=== PATIENT | female | born 1980 ===

== ENCOUNTER 2022-02-17 11:57 | Outpatient (CLI) | payer BC | END 2022-02-17 11:58 | disposition home or self-care (01) | LOC: CSHLAB 11:57 | PROVIDERS: ATTEND Student in an Organized Health Care Education/Training Program | DX: Z01.818 Encounter for other preprocedural examination (principal); N92.0 Excessive and frequent menstruation with regular cycle | CPT/HCPCS: 80048; 80076; 84703; 85027; 86850; 86900; 86901; 93005; 93010 ==

== ENCOUNTER 2022-03-07 10:39 | Day surgery (SDC) | payer BC ==
[2022-02-17 13:51] LABS: Mean Corpuscular HGB CONC 34.3 g/dL (32.0-36.0); Mean Corpuscular Hemoglobin 30.8 pg (27.0-33.0); Mean Corpuscular Volume 89.9 fl (81.6-98.3); Mean Platelet Volume 10.3 fl (7.4-10.4); Platelet Count 367 10x3/uL (150-450); RBC Distribution Width 12.8 % (11.5-14.5); Red Blood Cell (RBC) Count 4.54 10x6/uL (3.90-5.03); White Blood Cell (WBC) Count 6.7 10x3/uL (3.5-10.5)
[2022-02-17 14:06] LABS: BHCG - Serum Negative (NEGATIVE); Pregs Control Background? CLEAR/WHITE (CLR/WHITE); Pregs Control Bar Appear? YES (CONTROL BAR)
[2022-02-17 14:17] LABS: ALT (SGPT) 17 U/L (8-55); AST (SGOT) 17 U/L (5-34); Albumin 4.2 g/dL (3.5-5.0); Alkaline Phosphatase 72 U/L (40-110); Anion Gap 14 mmol/L (10-20); BUN (Urea Nitrogen) 7 mg/dL (7.0-18.7); Bilirubin, Direct 0.2 mg/dL (0.1-0.3); Bilirubin, Total 0.6 mg/dL (0.2-1.2); Calc. Creatinine Clearance 0 mL/min (70-130); Calcium 9.4 mg/dL (7.8-10.44); Carbon Dioxide 26 mmol/L (22-29); Chloride 106 mmol/L (98-107); Estimated GFR 104; Glucose 80 mg/dL (70-105); Potassium 4.5 mmol/L (3.5-5.1); Protein, Total 6.7 g/dL (6.0-8.3); Sodium 141 mmol/L (136-145)
[2022-02-18 11:07] VITALS: BMI 29.5
[2022-03-07] MEDS ORDERED: Famotidine/PF 20 mg/2ml Vial ONE (10:53)
[2022-03-07] MEDS ORDERED: Gabapentin 300 MG CAP ONE (10:53)
[2022-03-07] MEDS ORDERED: CeleCOXIB 100 MG CAP ONE (10:53)
[2022-03-07] MEDS ORDERED: Bupivacaine PF 0.5% 30 ML VIAL ONE (11:21)
[2022-03-07 11:44] LABS: BHCG - Serum Negative (NEGATIVE); Pregs Control Background? CLEAR/WHITE (CLR/WHITE); Pregs Control Bar Appear? YES (CONTROL BAR)
[2022-03-07] MEDS ORDERED: PROPOFOL 20 ML ONE (12:35)
[2022-03-07] MEDS ORDERED: Fentanyl 100 MCG/2 ML VIAL ONE ×3 (12:36→14:49)
[2022-03-07] MEDS ORDERED: Ondansetron PF 4 MG/2 ML Vial ONE (12:37)
[2022-03-07] MEDS ORDERED: Dexamethasone 4 mg/ml Vial ONE (12:37)
[2022-03-07] MEDS ORDERED: Lidocaine 2% PF 5 ML VIAL ONE (12:37)
[2022-03-07] MEDS ORDERED: Ketorolac Tromethamine 30 MG/ML VIAL ONE (12:37)
[2022-03-07] MEDS ORDERED: Rocuronium Bromide 10 MG/ML (10ML VIAL) ONE (12:37)
[2022-03-07] MEDS ORDERED: CEFAZOLIN 2 GM VIAL ONE (12:46)
[2022-03-07] MEDS ORDERED: Midazolam HCl 2 mg/2 ml Vial ONE (12:50)
[2022-03-07] MEDS ORDERED: HYDROmorphone 0.5 MG/0.5 ML SYRINGE ONE ×5 (13:06→15:36)
[2022-03-07] MEDS ORDERED: Glycopyrrolate 0.2 MG/ML 5 ML SYRINGE ONE (14:07)
== END 2022-03-07 16:30 | disposition home or self-care (01) ==
LOC: CSHSDC 10:39
PROVIDERS: ATTEND Student in an Organized Health Care Education/Training Program
PROC: 0UT04ZZ Resection of Right Ovary, Percutaneous Endoscopic Approach (ICD-10-PCS; principal; 2022-03-07)
PROC: 0UT94ZZ Resection of Uterus, Percutaneous Endoscopic Approach (ICD-10-PCS; principal; 2022-03-07)
PROC: 0UT74ZZ Resection of Bilateral Fallopian Tubes, Percutaneous Endoscopic Approach (ICD-10-PCS; principal; 2022-03-07)
DX: N80.03 Adenomyosis of the uterus (principal); N83.11 Corpus luteum cyst of right ovary; N83.8 Other noninflammatory disorders of ovary, fallopian tube and broad ligament; N88.8 Other specified noninflammatory disorders of cervix uteri; N92.0 Excessive and frequent menstruation with regular cycle; E78.00 Pure hypercholesterolemia, unspecified; G43.909 Migraine, unspecified, not intractable, without status migrainosus; I10 Essential (primary) hypertension; I25.2 Old myocardial infarction; Z87.891 Personal history of nicotine dependence; Z79.899 Other long term (current) drug therapy; Z88.2 Allergy status to sulfonamides; Z79.82 Long term (current) use of aspirin
CPT/HCPCS: 80048; 80076; 84703; 85027; 86850; 86900; 86901; 88307; C1889; J1100; J1170; J1885; J2001; J2250; J2405; J2704; J3010; S0020; S0028